=== PATIENT | male | born 1965 | race Caucasian/White ===

== ENCOUNTER 2018-07-27 20:04 | Inpatient (IN) | payer MEDICAID ==
[~2018-07-27] VITALS: Ht 188 cm; Wt 181.0 kg
[2018-07-27] MEDS ORDERED: cloNIDine HCL 0.1 MG TAB ONE (20:44)
[2018-07-27] MEDS ORDERED: cloNIDine HCL 0.1 MG TAB PO ONE (21:00)
[2018-07-27 21:12] LABS: Basophils # (auto) 0.1 uL; Basophils % (auto) 1.2 % (0.0-2.0); Eosinophils # (auto) 0.3 uL; Eosinophils % (auto) 2.8 % (0.0-7.0); Hematocrit 42.9 % (41.0-53.0); Hemoglobin 14.1 g/dL (13.5-17.5); Lymphocytes # (auto) 1.7 uL; Lymphocytes % (auto) 17.4 % (10.0-50.0); Mean Corpuscular Hemoglobin 28.1 pg (28.0-32.0); Mean Corpuscular Hgb Conc. 32.8 g/dL (32.0-36.0); Mean Corpuscular Volume 85.6 fL (80.0-100.0); Monocytes # (auto) 0.8 uL; Monocytes % (auto) 8.6 % (0.0-12.0); Neutrophils # (auto) 6.8 uL; Nucleated Red Blood Cells % 0.1 %; Platelet Count (auto) 255 10^3/uL (140-450); Red Blood Cells 5.01 10^6/uL (4.5-5.90); Red Cell Distribution Width 15.5 % (11.8-14.3); White Blood Cell 9.7 10^3/uL (4.4-10.8)
[2018-07-27 21:28] LABS: Alanine Aminotransferase 63 U/L (16-61); Albumin 3.6 g/dL (3.4-5.0); Anion Gap 7 (5-15); Aspartate Aminotransferase 49 U/L (15-37); BUN/Creatinine Ratio 16.3; Blood Urea Nitrogen 16 mg/dL (7-18); Calcium 8.4 mg/dL (8.5-10.1); Carbon Dioxide 25 mmol/L (21-32); Chloride 109 mmol/L (98-107); GFR African American 103 mL/min; GFR Non-African American 85 mL/min; Glucose 95 mg/dL (74-106); Potassium 4.1 mmol/L (3.5-5.1); Sodium 141 mmol/L (136-145)
[2018-07-27 21:33] LABS: Alkaline Phosphatase 81 U/L (45-117); Bilirubin, Total 0.3 mg/dL (0.2-1.0); Total Protein 7.9 g/dL (6.4-8.2)
[2018-07-27 22:17] LABS: Urine Bacteria NONE SEEN /hpf (None Seen); Urine Blood Negative /uL (Negative); Urine Specific Gravity 1.023 (1.001-1.035); Urine Sperm PRESENT /hpf (None Seen); Urine WBC 2 /hpf (0 - 3)
[2018-07-28] VITALS (9 sets, daily range): BP systolic 114–155; BP diastolic 72–105
[2018-07-28] MEDS ORDERED: ONDANSETRON HCL 4 MG/2 ML VIAL IV PRN (00:45)
[2018-07-28] MEDS ORDERED: cloNIDine HCL 0.1 MG TAB PO PRN (00:45)
[2018-07-28] MEDS ORDERED: TEMAZEPAM 15 MG CAP PO PRN (00:45)
[2018-07-28] MEDS ORDERED: ACETAMINOPHEN 325 MG TAB PO PRN (00:45)
[2018-07-28] MEDS ORDERED: cefTRIAXone 1GM/10ml IVPUSH 10 ML IV ONE (01:15)
[2018-07-28] MEDS: HYDROcodone-ACET 5/325MG TAB PO PRN ×3 (02:29→20:21)
[2018-07-28] MEDS ORDERED: NORPTMEDS (02:47)
[2018-07-28] MEDS: CLINDAMYCIN 600MG IV 50 ML IV SCH ×3 (05:29→21:36)
[2018-07-28] MEDS: FAMOTIDINE 20 MG TAB PO SCH ×2 (09:37→21:36)
[2018-07-28] MEDS: ENOXAPARIN SOD 40 MG/0.4 ML SYRINGE SC SCH (09:37)
[2018-07-28] MEDS: KETOROLAC TROMETH 30 MG/ML 1ML VIAL IV PRN (12:44)
[2018-07-28] MEDS ORDERED: cefTRIAXone 1GM/10ml IVPUSH 10 ML IV SCH (21:00)
[2018-07-29 05:24] VITALS: BP 127/83
[2018-07-29] MEDS: CLINDAMYCIN 600MG IV 50 ML IV SCH (05:40)
[2018-07-29] MEDS: KETOROLAC TROMETH 30 MG/ML 1ML VIAL IV PRN (05:45)
[2018-07-29 09:56] VITALS: BP 131/69
[2018-07-29] MEDS: ENOXAPARIN SOD 40 MG/0.4 ML SYRINGE SC SCH (10:21)
[2018-07-29] MEDS: FAMOTIDINE 20 MG TAB PO SCH (10:21)
== END 2018-07-29 11:35 | disposition left against medical advice (07) | DRG 383 ==
LOC: ER 20:07 → CENTRAL 20:08
PROVIDERS: ADMIT Nurse Practitioner; ATTEND Internal Medicine
DX: L03.115 Cellulitis of right lower limb (principal); E66.01 Morbid (severe) obesity due to excess calories; I10 Essential (primary) hypertension; L03.116 Cellulitis of left lower limb; Z68.43 Body mass index [BMI] 50.0-59.9, adult; G47.33 Obstructive sleep apnea (adult) (pediatric); F17.210 Nicotine dependence, cigarettes, uncomplicated; F12.90 Cannabis use, unspecified, uncomplicated
CPT/HCPCS: 36415; 71045; 80053; 81001; 83880; 84484; 85025; 85379; 93970; 96365; 96375; A6257; J1885; J3490

== ENCOUNTER 2018-09-06 22:36 | Inpatient (IN) | payer SELFPAY ==
[~2018-09-06] VITALS: Ht 185.4 cm; Wt 175.9 kg
[~2018-09-06 22:36] MED LIST: NORPTMEDS
[2018-09-06 23:52] LABS: Basophils # (auto) 0 uL; Eosinophils # (auto) 0.4 uL; Eosinophils % (auto) 4.7 % (0.0-7.0); Hemoglobin 13.9 g/dL (13.5-17.5); Lymphocytes # (auto) 1.3 uL; Lymphocytes % (auto) 14.6 % (10.0-50.0); Mean Corpuscular Hemoglobin 28.1 pg (28.0-32.0); Mean Corpuscular Hgb Conc. 32.3 g/dL (32.0-36.0); Monocytes # (auto) 0.7 uL; Monocytes % (auto) 7.3 % (0.0-12.0); Neutrophils # (auto) 6.6 uL; Neutrophils % (auto) 73.4 % (37.0-80.0); Nucleated Red Blood Cells % 0.1 %; Platelet Count (auto) 249 10^3/uL (140-450); Red Blood Cells 4.94 10^6/uL (4.5-5.90); Red Cell Distribution Width 14.9 % (11.8-14.3)
[2018-09-07 00:07] LABS: Albumin 3.6 g/dL (3.4-5.0); BUN/Creatinine Ratio 11.8; Calcium 8.4 mg/dL (8.5-10.1); Potassium 4.3 mmol/L (3.5-5.1)
[2018-09-07 00:10] LABS: Bilirubin, Total 0.4 mg/dL (0.2-1.0); Total Protein 7.6 g/dL (6.4-8.2)
[2018-09-07] MEDS ORDERED: VANCOMYCIN 1GM/250ML 250 ML IV ONE (01:00)
[2018-09-07] MEDS ORDERED: KETOROLAC TROMETH 30 MG/ML 1ML VIAL IV ONE (01:00)
[2018-09-07] MEDS ORDERED: fentaNYL CITRATE 100 MCG/2 ML VL IV ONE (01:00)
[2018-09-07] MEDS ORDERED: ONDANSETRON HCL 4 MG/2 ML VIAL IV PRN ×2 (02:45→12:15)
[2018-09-07] MEDS ORDERED: ACETAMINOPHEN 500 MG TAB PO PRN (02:45)
[2018-09-07 03:09] LABS: Urine Bacteria NONE SEEN /hpf (None Seen); Urine Blood Negative /uL (Negative); Urine Mucus FEW (None Seen); Urine Specific Gravity 1.015 (1.001-1.035); Urine WBC 1 /hpf (0 - 3)
[2018-09-07] MEDS: cefTRIAXone 1GM/50ML D5W 50 ML IV SCH ×2 (03:34→20:53)
[2018-09-07] MEDS: CLINDAMYCIN 600MG IV 50 ML IV SCH ×2 (03:52→10:38)
[2018-09-07 05:34] VITALS: BP 128/75
[2018-09-07 08:00] VITALS: BP 135/93
[2018-09-07 12:00] VITALS: BP 130/60
[2018-09-07] MEDS ORDERED: VANCOMYCIN PER PHARMACY 0 MG IV SCH (12:15)
[2018-09-07] MEDS: MORPHINE SULFATE 4 MG/ML SYR/VIAL IV PRN ×3 (13:23→22:37)
[2018-09-07] MEDS ORDERED: VANCOMYCIN 1,250 MG in D5W 5% 250 ML IV SCH ×5 (14:00→19:00)
[2018-09-07] MEDS: VANCOMYCIN 1,250 MG in D5W 5% 250 ML IV SCH ×3 (14:28→22:37)
[2018-09-07 16:00] VITALS: BP 125/61
[2018-09-07 20:00] VITALS: BP 120/87
[2018-09-07 20:00] LABS: Alcohol, Urine < 3.0 mg/dL (0-5); Amphetamine Screen, Urine POSITIVE (NEGATIVE); Barbiturate Scree,Urine NEGATIVE (NEGATIVE); Benzodiazephine Screen, Urine NEGATIVE (NEGATIVE); Cannabinoid Screen, Urine POSITIVE (NEGATIVE); Cocaine Screen, Urine NEGATIVE (NEGATIVE); Opiate Scree,Urine POSITIVE (NEGATIVE); Phencyclidine Screen, Urine NEGATIVE (NEGATIVE)
[2018-09-07] MEDS: ENOXAPARIN SOD 150 MG/1 ML SYRINGE SC SCH (21:29)
[2018-09-07 22:00] VITALS: BP 120/87
[2018-09-08] MEDS: MORPHINE SULFATE 4 MG/ML SYR/VIAL IV PRN ×2 (03:52→10:36)
[2018-09-08 05:00] VITALS: BP 125/77
[2018-09-08] MEDS: VANCOMYCIN 1,250 MG in D5W 5% 250 ML IV SCH ×3 (05:26→22:00)
[2018-09-08 08:00] VITALS: BP 128/85
[2018-09-08 08:40] VITALS: BP 128/85
[2018-09-08] MEDS: ENOXAPARIN SOD 150 MG/1 ML SYRINGE SC SCH ×2 (10:33→21:04)
[2018-09-08 13:00] VITALS: BP 125/92
[2018-09-08 17:00] VITALS: BP 137/89
[2018-09-08] MEDS: cefTRIAXone 1GM/50ML D5W 50 ML IV SCH (21:00)
[2018-09-08] MEDS: HYDROcodone-ACET 5/325MG TAB PO PRN (21:04)
[2018-09-08 22:00] VITALS: BP 124/62
[2018-09-09 05:33] VITALS: BP 143/88
[2018-09-09] MEDS: VANCOMYCIN 1,250 MG in D5W 5% 250 ML IV SCH ×3 (06:00→23:30)
[2018-09-09 08:00] VITALS: BP 137/93
[2018-09-09 09:00] VITALS: BP 137/93
[2018-09-09] MEDS: HYDROcodone-ACET 5/325MG TAB PO PRN (12:30)
[2018-09-09 13:00] VITALS: BP 154/81
[2018-09-09 16:53] VITALS: BP 160/74
[2018-09-09] MEDS ORDERED: WARFARIN SODIUM 5 MG TAB PO ONE (17:00)
[2018-09-09] MEDS: MORPHINE SULFATE 4 MG/ML SYR/VIAL IV PRN ×2 (17:00→21:01)
[2018-09-09] MEDS: cefTRIAXone 1GM/50ML D5W 50 ML IV SCH (20:22)
[2018-09-09 22:00] VITALS: BP 120/73
[2018-09-09 23:20] LABS: INR 0.91 (0.9-1.15); Prothrombin Time 9.8 sec (9.27-12.13)
[2018-09-10] MEDS: MORPHINE SULFATE 4 MG/ML SYR/VIAL IV PRN ×4 (00:55→16:43)
[2018-09-10 04:59] VITALS: BP 136/87
[2018-09-10 06:46] LABS: INR 0.97 (0.9-1.15); Prothrombin Time 10.4 sec (9.27-12.13)
[2018-09-10] MEDS: VANCOMYCIN 1,250 MG in D5W 5% 250 ML IV SCH ×2 (08:08→16:47)
[2018-09-10 09:06] LABS: Basophils # (auto) 0.2 uL; Basophils % (auto) 2.5 % (0.0-2.0); Eosinophils # (auto) 0.3 uL; Eosinophils % (auto) 3.1 % (0.0-7.0); Hematocrit 46.9 % (41.0-53.0); Hemoglobin 15.4 g/dL (13.5-17.5); Lymphocytes % (auto) 20.8 % (10.0-50.0); Mean Corpuscular Hemoglobin 28.4 pg (28.0-32.0); Mean Corpuscular Hgb Conc. 32.7 g/dL (32.0-36.0); Mean Corpuscular Volume 86.7 fL (80.0-100.0); Neutrophils # (auto) 6.1 uL; Neutrophils % (auto) 63.6 % (37.0-80.0); Nucleated Red Blood Cells % 0.1 %; Platelet Count (auto) 279 10^3/uL (140-450); Red Blood Cells 5.41 10^6/uL (4.5-5.90); Red Cell Distribution Width 14.7 % (11.8-14.3); White Blood Cell 9.5 10^3/uL (4.4-10.8)
[2018-09-10 09:17] LABS: Albumin 3.3 g/dL (3.4-5.0); BUN/Creatinine Ratio 13.5; Calcium 8.6 mg/dL (8.5-10.1); Potassium 3.6 mmol/L (3.5-5.1)
[2018-09-10 09:20] LABS: Bilirubin, Total 0.5 mg/dL (0.2-1.0); Total Protein 7.9 g/dL (6.4-8.2)
[2018-09-10 09:45] VITALS: BP 123/78
[2018-09-10 13:00] VITALS: BP 130/89
[2018-09-10 17:00] VITALS: BP 130/82
[2018-09-10] MEDS ORDERED: WARFARIN SODIUM 10 MG TAB PO ONE (17:00)
[2018-09-10] MEDS: cefTRIAXone 1GM/50ML D5W 50 ML IV SCH (20:22)
[2018-09-10 21:48] VITALS: BP 139/74
[2018-09-10] MEDS: VANCOMYCIN 1GM/250ML 250 ML IV SCH (23:47)
[2018-09-11] MEDS: MORPHINE SULFATE 4 MG/ML SYR/VIAL IV PRN ×3 (01:08→12:44)
[2018-09-11 04:47] VITALS: BP 131/77
[2018-09-11 06:58] LABS: INR 1.07 (0.9-1.15); Partial Thromboplastin Time 27.2 sec (23.78-33.04); Prothrombin Time 11.4 sec (9.27-12.13)
[2018-09-11 08:00] VITALS: BP 148/79
[2018-09-11 09:00] VITALS: BP 148/79
[2018-09-11] MEDS: VANCOMYCIN 1GM/250ML 250 ML IV SCH ×2 (10:38→16:00)
[2018-09-11 13:00] VITALS: BP 114/81
[2018-09-11] MEDS ORDERED: WARFARIN SODIUM 10 MG TAB PO ONE (17:00)
== END 2018-09-11 16:00 | disposition home or self-care (01) | DRG 300 ==
LOC: ER 22:41 → OVERFLOW 22:42 → CENTRAL 09-07 07:37
PROVIDERS: ADMIT Nurse Practitioner Family; ATTEND Family Medicine
DX: I82.431 Acute embolism and thrombosis of right popliteal vein (principal); L03.115 Cellulitis of right lower limb; L03.116 Cellulitis of left lower limb; Z68.43 Body mass index [BMI] 50.0-59.9, adult; E66.9 Obesity, unspecified; E11.9 Type 2 diabetes mellitus without complications; F12.10 Cannabis abuse, uncomplicated; F15.10 Other stimulant abuse, uncomplicated; F17.210 Nicotine dependence, cigarettes, uncomplicated; I10 Essential (primary) hypertension; M17.10 Unilateral primary osteoarthritis, unspecified knee; Z79.01 Long term (current) use of anticoagulants; Z86.718 Personal history of other venous thrombosis and embolism
CPT/HCPCS: 36415; 71045; 73700; 80053; 80202; 80307; 81001; 83036; 83605; 83880; 85025; 85379; 85610; 85730; 87040; 93306; 93970; 94761; 96365; 96375; 99291; G0378; J0696; J1885; J3490; J7060

== ENCOUNTER 2020-12-09 19:11 | Inpatient (IN) | payer MEDICAID ==
[~2020-12-09] VITALS: Ht 188 cm; Wt 195.0 kg
[2020-12-09] MEDS ORDERED: ACETAMINOPHEN 325 MG TAB PO ONE (19:45)
[2020-12-09 21:05] LABS: Basophils # (auto) 0.2 10 ^3/uL (0-0.2); Basophils % (auto) 0.8 % (0.0-2.0); Eosinophils # (auto) 0.1 10 ^3/uL (0-0.8); Eosinophils % (auto) 0.5 % (0.0-7.0); Hematocrit 42.1 % (41.0-53.0); Hemoglobin 13.9 g/dL (13.5-17.5); Lymphocytes % (auto) 5.3 % (10.0-50.0); Mean Corpuscular Hemoglobin 28.4 pg (28.0-32.0); Mean Corpuscular Volume 85.9 fL (80.0-100.0); Monocytes # (auto) 1.1 10 ^3/uL (0-1.3); Monocytes % (auto) 6.1 % (0.0-12.0); Neutrophils # (auto) 15.8 10 ^3/uL (1.6-8.6); Neutrophils % (auto) 87.3 % (37.0-80.0); Nucleated Red Blood Cells % 0.3 %; Platelet Count (auto) 296 10^3/uL (140-450); Red Blood Cells 4.91 10^6/uL (4.5-5.90); Red Cell Distribution Width 14.7 % (11.8-14.3); White Blood Cell 18.1 10^3/uL (4.4-10.8)
[2020-12-09 21:20] LABS: INR 0.95 (0.9-1.15); Partial Thromboplastin Time 24.8 sec (23.0-31.2)
[2020-12-09 21:22] LABS: Alanine Aminotransferase 23 U/L (16-61); Albumin 3.6 g/dL (3.4-5.0); Anion Gap 7 (5-15); BUN/Creatinine Ratio 14.1; Blood Urea Nitrogen 13 mg/dL (7-18); Calcium 8.7 mg/dL (8.5-10.1); Carbon Dioxide 26 mmol/L (21-32); Chloride 104 mmol/L (98-107); GFR African American 110 mL/min; GFR Non-African American 91 mL/min; Glucose 97 mg/dL (74-106); Potassium 4.6 mmol/L (3.5-5.1); Sodium 137 mmol/L (136-145)
[2020-12-09 21:26] LABS: Alkaline Phosphatase 63 U/L (45-117); Aspartate Aminotransferase 12 U/L (15-37); Bilirubin, Total 0.6 mg/dL (0.2-1.0); Total Protein 8.4 g/dL (6.4-8.2)
[2020-12-09] MEDS ORDERED: CEFEPIME 2 GM in SODIUM CHL 0.9% 50 ML IV ONE (21:30)
[2020-12-09] MEDS ORDERED: VANCOMYCIN 1GM/250ML 250 ML IV ONE ×2 (21:30)
[2020-12-09 21:37] LABS: Lactic Acid w/Reflex 2.1 mmol/L (0.4-2.0)
[2020-12-10] MEDS: ENOXAPARIN SOD 150 MG/1 ML SYRINGE SC SCH ×2 (03:55→10:00)
[2020-12-10] MEDS ORDERED: HYDROcodone-ACET 5/325MG TAB PO ONE (04:45)
[2020-12-10 05:30] LABS: Urine WBC None Seen /hpf (0 - 3)
[2020-12-10 06:04] LABS: Urine Bacteria NONE SEEN /hpf (None Seen); Urine Blood Negative /uL (Negative); Urine Specific Gravity 1.013 (1.001-1.035)
[2020-12-10] MEDS ORDERED: ACETAMINOPHEN 325 MG TAB PO PRN (08:45)
[2020-12-10] MEDS ORDERED: IOHEXOL 350 MG/ML 100ML IJ ONE (09:58)
[2020-12-10] MEDS: levoFLOXacin 500MG 100 ML IV SCH (10:00)
[2020-12-10] MEDS ORDERED: NITROGLYCERIN 0.4 MG SL TAB SL PRN (11:30)
[2020-12-10] MEDS ORDERED: MORPHINE SULF INJ 2 MG/ML SYRINGE 1ML IV PRN (11:30)
[2020-12-10 11:36] LABS: Basophils # (auto) 0.1 10 ^3/uL (0-0.2); Basophils % (auto) 0.5 % (0.0-2.0); Eosinophils # (auto) 0.1 10 ^3/uL (0-0.8); Eosinophils % (auto) 0.5 % (0.0-7.0); Hematocrit 37.8 % (41.0-53.0); Hemoglobin 12.3 g/dL (13.5-17.5); Lymphocytes # (auto) 1.4 10 ^3/uL (0.4-5.4); Lymphocytes % (auto) 8.6 % (10.0-50.0); Mean Corpuscular Hemoglobin 27.9 pg (28.0-32.0); Mean Corpuscular Hgb Conc. 32.6 g/dL (32.0-36.0); Mean Corpuscular Volume 85.4 fL (80.0-100.0); Monocytes # (auto) 1.1 10 ^3/uL (0-1.3); Monocytes % (auto) 6.3 % (0.0-12.0); Neutrophils # (auto) 14.2 10 ^3/uL (1.6-8.6); Neutrophils % (auto) 84.1 % (37.0-80.0); Nucleated Red Blood Cells % 0.1 %; Platelet Count (auto) 285 10^3/uL (140-450); Red Blood Cells 4.42 10^6/uL (4.5-5.90); Red Cell Distribution Width 14.6 % (11.8-14.3); White Blood Cell 16.9 10^3/uL (4.4-10.8)
[2020-12-10 11:52] LABS: BUN/Creatinine Ratio 14.8; Potassium 3.9 mmol/L (3.5-5.1)
[2020-12-10] MEDS ORDERED: HYDROcodone-ACET 5/325MG TAB PO PRN (12:30)
[2020-12-10] MEDS ORDERED: ALBUTEROL SULF HFA 90MCG INH 200DOSE IN SCH (14:00)
[2020-12-10 15:00] VITALS: BP 133/84
[2020-12-10] MEDS ORDERED: INFLUENZA QUAD 2020-2021 0.5 ML SYRG IM ONE (15:30)
[2020-12-10 16:00] VITALS: BP 133/84
[2020-12-10] MEDS: ALBUTEROL SULF 2.5 MG/0.5ML(0.5%) NEB SOLN NEB SCH (20:00)
[2020-12-10] MEDS: IPRATROPIUM BROM 0.5 MG/2.5ML INH SOL NEB SCH (20:00)
[2020-12-10] MEDS ORDERED: FURO40TA4 PO (21:25)
[2020-12-10 22:00] VITALS: BP 146/69
[2020-12-10] MEDS: CLINDAMYCIN 600MG IV 50 ML IV SCH (22:00)
[2020-12-11 05:30] VITALS: BP 149/70
[2020-12-11] MEDS: CLINDAMYCIN 600MG IV 50 ML IV SCH (06:00)
[2020-12-11] MEDS: ALBUTEROL SULF 2.5 MG/0.5ML(0.5%) NEB SOLN NEB SCH ×2 (07:35→12:00)
[2020-12-11] MEDS: IPRATROPIUM BROM 0.5 MG/2.5ML INH SOL NEB SCH ×2 (07:35→12:00)
[2020-12-11 08:00] VITALS: BP 148/81
[2020-12-11] MEDS: levoFLOXacin 500MG 100 ML IV SCH (09:24)
[2020-12-11] MEDS ORDERED: CLIN-203 PO (16:51)
[2020-12-11] MEDS ORDERED: ALBUAER3 IN (16:51)
[2020-12-11] MEDS ORDERED: LEVO500T31 PO (16:51)
== END 2020-12-11 12:15 | disposition left against medical advice (07) | DRG 720 ==
LOC: ER 19:11 → TELE 19:12 → TELE-CENTR 12-10 14:39
PROVIDERS: ADMIT Internal Medicine; ATTEND Internal Medicine
DX: A41.9 Sepsis, unspecified organism (principal); J96.01 Acute respiratory failure with hypoxia; J18.9 Pneumonia, unspecified organism; J98.11 Atelectasis; L03.116 Cellulitis of left lower limb; L03.115 Cellulitis of right lower limb; G47.33 Obstructive sleep apnea (adult) (pediatric); F17.210 Nicotine dependence, cigarettes, uncomplicated; E66.01 Morbid (severe) obesity due to excess calories; I11.0 Hypertensive heart disease with heart failure; I50.9 Heart failure, unspecified; Z20.822 Contact with and (suspected) exposure to COVID-19; Z82.49 Family history of ischemic heart disease and other diseases of the circulatory system; Z83.3 Family history of diabetes mellitus; Z23 Encounter for immunization; Z68.43 Body mass index [BMI] 50.0-59.9, adult; Z53.29 Procedure and treatment not carried out because of patient's decision for other reasons
CPT/HCPCS: 36415; 51702; 71045; 71275; 80048; 80053; 81001; 83605; 83880; 84484; 85025; 85379; 85610; 85730; 87040; 87426; 93005; 93306; 93970; 94640; 96365; 96366; 96367; 96372; G0378; J1956; J3490